=== PATIENT | male | born 1965 | race Caucasian/White ===

== ENCOUNTER 2023-09-21 15:50 | Emergency (ER) | payer OTHER, SELFPAY ==
[2023-09-21 15:53] VITALS: BP 134/95
[2023-09-21] MEDS: ZOFRAN ODT (ORALLY DISINTEGRATING) 4 MG PO (15:59)
[2023-09-21 16:03] LABS: Glucose - Point of Care 101 mg/dl (70-99)
[2023-09-21 16:13] LABS: % Basophils 0.4 % (0-2); % Eosinophils 1.6 % (0-6); % Immature Granulocytes 0.2 % (0-0.5); % Lymphocytes 20.5 % (20.5-51.1); % Monocytes 8.2 % (1.7-9.3); % Neutrophils 69.1 % (42.2-75.2); Absolute Eosinophils 0.1 10^3/uL (0-0.7); Absolute Lymphocytes 1.7 10^3/uL (1.2-3.4); Absolute Monocytes 0.7 10^3/uL (0.1-0.6); Absolute Neutrophils 5.9 10^3/uL (1.4-6.5); Hematocrit 44.2 % (39.0-52.0); Hemoglobin 14.9 g/dL (13.0-18.0); Mean Corp Hgb Conc. 33.7 g/dL (33.0-37.0); Mean Corpuscular Hgb 29.4 pg (27.0-31.0); Mean Corpuscular Volume 87.4 fL (80.0-94.0); Mean Platelet Volume 8.5 fL (7.4-10.4); Nucleated Red Blood Cells % 0 % (-); Platelet Count 220 10^3/uL (130-400); Red Blood Cell Count 5.06 10^6/uL (4.70-6.10); Red Cell Dist. Width 14.8 % (11.5-14.5); White Blood Cell Count 8.5 10^3/uL (4.8-10.8)
[2023-09-21 16:24] LABS: ALT (SGPT) 20 U/L (0-50); AST (SGOT) 34 U/L (17-59); Albumin 4.6 g/dl (3.5-5.0); Alkaline Phosphatase 61 U/L (38-126); Blood Urea Nitrogen 14 mg/dl (9-20); Calcium 10.3 mg/dl (8.4-10.2); Carbon Dioxide 28 mmol/L (22-30); Chloride 99 mmol/L (98-107); Glucose 106 mg/dl (70-99); Lipase 292 U/L (23-300); Potassium 3.6 mmol/L (3.5-5.1); Sodium 135 mmol/L (135-145); Total Bilirubin 0.7 mg/dl (0.2-1.3); Total Protein 7.4 g/dl (6.3-8.2); eGFR > 60.00
[2023-09-21 20:08] VITALS: BP 149/101
--- NOTE | 2023-09-21 20:25 | ED.GENMED ---
History of Present Illness
General
Chief Complaint: Abdominal Symptoms
Source: patient
Exam Limitations: none
Time Seen by Provider: 09/21/23 20:15
Nursing documentation reviewed up to this point in time: agreed with
Travel History
Have you had any contact with someone who has COVID-19?: No
Do you have any symptoms of coronavirus? Fever > 100 degrees, chills, cough, shortness of breath, sore throat, loss of taste or smell, muscle aches, or headache?: No
History of Present Illness
History of Present Illness:
58-year-old male presents to the ER for evaluation. Patient started with nausea and vomiting yesterday and abdominal pain. Patient continues to complain of generalized abdominal discomfort and intermittent nausea and vomiting. You know he has
vomiting he is able to drink liquids. He complains of not having an appetite.
Pt tells me he was very shaky today with the vomiting and pain which is what prompted him to come to the ER.
He denies any sick contacts he denies any recent fever chills. Denies any new frequency urgency or dysuria. His last bowel movement was on Thursday.
Past History
Past History
ED Past Medical History: Asthma, HTN, Hypercholesterolemia, NIDDM and Other (Previous cellulitis of both legs. Obstructive sleep apnea)
ED Past Surgical History: Other (Hernia repair, previous Mediport )
Social History
Tobacco: Smoker
Alcohol: Occasional
Personal:
Living: with family
Employment: Employed
Family History
Family History: CAD; Negative Diabetes
Review of Systems
Review of Systems
Allergies reviewed?: Yes
All Other Systems: ROS reviewed and negative except as documented in HPI and ROS
Constitutional: Reports no symptoms; Denies fever, fatigue or chills
Respiratory: Reports no symptoms
Cardiac: Reports no symptoms
ABD/GI: Reports abdominal pain, nausea and vomiting; Denies diarrhea
: Reports no symptoms
Musculoskeletal: Reports no symptoms
Skin: Reports no symptoms
Neurological: Reports no symptoms
Psychiatric: Reports no symptoms
Phy Exam
General Physical Exam
General Presentation: no apparent distress
General age: appears stated age
General Skin: warm and dry
General Habitus: normal
General Mental: alert
General Hydration: appears well hydrated
Gastrointestinal Exam
Gastrointestinal Exam: soft and other (Nonspecific mild tenderness throughout)
Neurological Exam
Neurological Exam: alert and oriented x3
Musculoskeletal Exam
Musculoskeletal Exam: full ROM
Skin Exam
Skin Exam: normal color and warm/dry
Psychiatric Exam
Psychiatric Exam: normal mood/affect
Course
Orders/Labs/Results
Orders:
Orders
09/21/23 15:58
Ondansetron Orally Disint [Zofran Odt (Orally Disintegrating)] 4 mg .ROUTE .STK-MED ONE
09/21/23 15:59
Ondansetron Orally Disint [Zofran Odt (Orally Disintegrating)] 4 mg PO NOW STA
09/21/23 16:04
Complete Blood Count/With Diff Urgent
Comprehensive Metabolic Panel Urgent
Lipase Urgent
09/21/23 20:23
IV Insert/Care/Rem.- Treatment PRN
0.9% Sodium Chloride 1000 ml [Nss] 1,000 ml IV BOLUS
09/21/23 20:24
CT Abd/Pel (IV only)-DH only Urgent
Comment:
Reason For Exam: abd pain /vomiting
Abnormal Lab Results
09/21/23 09/21/23
16:01 16:04
RDW 14.8 H %
(11.5-14.5)
Absolute Monos (auto) 0.7 H 10^3/uL
(0.1-0.6)
Glucose 106 H mg/dl
(70-99)
Calcium 10.3 H mg/dl
(8.4-10.2)
POC Glucose 101 H mg/dl
(70-99)
09/21/23 16:04
09/21/23 16:04
Vital Signs
Initial and Last Documented VS:
Initial Vital Signs
Temp Pulse Resp BP Pulse Ox
98.4 F 97 18 134/95 100
09/21/23 15:53 09/21/23 15:53 09/21/23 15:53 09/21/23 15:53 09/21/23 15:53
Last Documented Vital Signs
Temp Pulse Resp BP Pulse Ox
98.4 F 72 18 169/110 95
09/21/23 15:53 09/22/23 00:35 09/22/23 00:35 09/22/23 00:35 09/22/23 00:35
MDM/Problems Addressed
Differential Diagnosis Includes:
Not limited to viral syndrome, gastroenteritis diverticulitis
MDM/Problems Addressed:
Patient is a 58-year-old male who complains of abdominal discomfort bloating nausea vomiting.
Patient with nonspecific mild abdominal tenderness. CAT scan shows moderate fluid distention stomach which could be secondary to acute gastritis interval enlargement of a fat-containing right anterior abdominal wall hernia.
Likely viral syndrome. Patient is tolerating fluids,(water ) here will DC with Zofran instructed patient to clear liquids for the next 24 hours follow bland solid foods.
Patient was given information for surgery for hernia follow-up he is to return if any worsening symptoms.
Chronic conditions affecting care:
diabetes
*Radiology
Radiology exam reviewed: radiology read reviewed
*Pulse Oximetry
Patient hypoxic: no
*Critical Care Note
Total Time (30-74mins, 75-104mins- exclusive of procedures): Not Applicable
ED Attending Note
-
Portions of this chart may have been created with voice recognition software.� Occasional wrong word or��sound alike� substitutions may have occurred due to the inherent limitations of voice recognition software.
Discharge Plan
Departure
Patient Disposition: Home (Routine Discharge)
Date of Disposition: 09/22/23
Time of Disposition: 00:13
Patient with high blood pressure during this ER visit?: Yes
Covid-19: Not Applicable
Discharge Problem:
Nausea and vomiting
Instructions: Nausea and Vomiting, Adult (DC), BLOOD PRESSURE
Prescriptions:
New
ondansetron 4 mg tablet,disintegrating
4 mg PO Q8H PRN (Reason: nausea and vomiting) Qty: 10 0RF
No Action
albuterol sulfate 1 PUFF HFA aerosol inhaler
1 puff inhalation R Q4HPRN PRN (Reason: sob)
budesonide-formoterol [Symbicort] 1 PUFF HFA aerosol inhaler
2 puff inhalation R BID
glimepiride 1 MG tablet
1 mg PO DAILY
losartan 25 MG tablet
25 mg PO DAILY
fenofibrate nanocrystallized 145 MG tablet
145 mg PO DAILY
acetaminophen-codeine 1 TABLET tablet
1 - 2 tab PO Q4HPRN PRN (Reason: mod-severe pain) Qty: 20 0RF
naproxen 500 MG tablet
500 mg PO BID Qty: 20 0RF
Rx Instructions:
use around the clock x 72h/3d, then as needed
same a Aleve, OTC, no Rx needed
drink plenty of fluids while using
polyethylene glycol 3350 17 GRAMS powder in packet
17 grams PO DAILY Qty: 10 0RF
Rx Instructions:
OTC, no Rx needed
Use if no BM for >24h
ranitidine HCl [Zantac 75] 75 MG tablet
150 mg PO BID Qty: 20 0RF
Rx Instructions:
use together with naproxen to avoid stomach ulcers
OTC, no Rx needed
doxycycline hyclate 100 MG capsule
100 mg PO Q12 Qty: 10 0RF
metformin 500 MG tablet
500 mg PO BID Qty: 0 0RF
Rx Instructions:
re-start 04/15
indomethacin 25 MG capsule
25 mg PO TID Qty: 30 0RF
Rx Instructions:
with food
oxycodone 5 MG tablet
5 mg PO Q6H PRN (Reason: pain) Qty: 20 0RF
Referrals:
Jose Rafael Edwards MD [Active] -
Crow Angelo DO [Family Provider] -
Activity Restrictions/Additional Instructions:
You may take Zofran as needed for nausea. This medicine was sent to your pharmacy. Take as directed. Clear fluids for the first 24 hours followed by bland solid foods. Follow-up with family doctor the next 2 days for reevaluation. You were also
given information on general surgery for reevaluation of hernia. Return if any woresning of symtpoms.
Interventions
Interventions:
*Risk Screen - Suicide Last Done: 09/21/23 15:53
*General Assessment Last Done: 09/21/23 15:53
*Neglect/Abuse Screening Last Done: 09/21/23 20:08
ED- Fall Risk Assessment Last Done: 09/22/23 00:40
*ED COVID-19 Vaccine History Last Done: 09/21/23 15:53
*Nursing Disposition Last Done: 09/22/23 00:45
RI-[facility]-Mxpakwjmkb Assessment Last Done: 09/22/23 00:40
Discharge Date and Time
Discharge Date/Time: 09/22/23 00:45
Print Language: CITIZEN [place]
[2023-09-21] MEDS: NSS 1000 IV (20:42)
[2023-09-22 00:35] VITALS: BP 169/110
== END 2023-09-22 00:45 | disposition home or self-care (01) ==
LOC: EMR 15:50
PROVIDERS: Emergency Medicine; EMERGENCY PHYSICIAN Emergency Medicine; FAMILY PHYSICIAN Family Medicine
DX: R11.2 Nausea with vomiting, unspecified (principal); R10.819 Abdominal tenderness, unspecified site; I10 Essential (primary) hypertension; E11.9 Type 2 diabetes mellitus without complications; K43.9 Ventral hernia without obstruction or gangrene; F17.200 Nicotine dependence, unspecified, uncomplicated
CPT/HCPCS: 99285; 96360; 74177; 80053; 82962; 83690; 85025; Q9967